=== PATIENT | female | born 1990 | race Two or more races ===

== ENCOUNTER 2017-09-06 09:37 | Inpatient (IN) | payer OTHER ==
[2017-09-06] VITALS (7 sets, daily range): BP systolic 120–129; BP diastolic 58–79
[~2017-09-06] VITALS: Ht 162.6 cm; Wt 74.5 kg
[2017-09-06 10:59] LABS: BASOPHIL (%) 0.3 % (0-1); EOSINOPHIL (%) 1.1 % (0-5); EOSINOPHIL COUNT 0.1 K/uL (0-0.3); HEMATOCRIT 28.4 % (36.0-46.0); HEMOGLOBIN 8.7 G/DL (11.9-15.5); IMMATURE GRANULOCYTE (%) 0.4 % (0.0-0.7); LYMPHOCYTE (%) 20.2 % (15-42); MCH 22.3 PG (29.0-34.0); MCHC 30.6 G/DL (30.0-36.0); MCV 72.8 FL (83-99); MONOCYTE (%) 12.6 % (3-12); MONOCYTE COUNT 1.3 K/uL (0-0.8); NEUTROPHIL (%) 65.4 % (45-76); NEUTROPHIL COUNT 6.5 K/uL (1.8-6.4); PLATELET COUNT 286 K/uL (156-360); RBC DIS.WIDTH-CV 17.9 % (11.8-14.6); RBC DIS.WIDTH-SD 46.5 % (39-53)
[2017-09-06 12:13] LABS: AMPHETAMINE NEGATIVE (500 ng/mL); BARBITURATES NEGATIVE (200 ng/mL); BENZODIAZEPINES NEGATIVE (150 ng/mL); BUPRENORPHINE NEGATIVE (10 ng/mL); COCAINE NEGATIVE (150 ng/mL); METHADONE NEGATIVE (200 ng/mL); METHAMPHETAMINE NEGATIVE (500 ng/mL); OPIATES (MORPHINE) NEGATIVE (100 ng/mL); OXYCODONE NEGATIVE (100 ng/mL); PHENCYCLIDINE NEGATIVE (25 ng/mL); PROPOXYPHENE NEGATIVE (300 ng/mL); THC CANNABINOIDS NEGATIVE (50 ng/mL); TRICYCLIC ANTIDEPRESSANTS NEGATIVE (300 ng/mL)
[2017-09-06] MEDS ORDERED: MTERYTI COMBO1 EACH PO (18:07)
[2017-09-07] VITALS (8 sets, daily range): BP systolic 111–132; BP diastolic 60–72
[2017-09-07 07:13] LABS: BASOPHIL (%) 0.2 % (0-1); EOSINOPHIL COUNT 0.1 K/uL (0-0.3); HEMATOCRIT 25.1 % (36.0-46.0); HEMOGLOBIN 7.6 G/DL (11.9-15.5); IMMATURE GRANULOCYTE (%) 0.4 % (0.0-0.7); LYMPHOCYTE (%) 18.8 % (15-42); MCH 22.4 PG (29.0-34.0); MCHC 30.3 G/DL (30.0-36.0); MCV 73.8 FL (83-99); MONOCYTE COUNT 1.3 K/uL (0-0.8); NEUTROPHIL (%) 67.6 % (45-76); NEUTROPHIL COUNT 7.3 K/uL (1.8-6.4); PLATELET COUNT 221 K/uL (156-360); RBC DIS.WIDTH-CV 17.9 % (11.8-14.6); RBC DIS.WIDTH-SD 47.8 % (39-53); WHITE BLOOD COUNT 10.8 K/uL (4.1-10.2)
[2017-09-07 16:37] LABS: HEMATOCRIT 24.8 % (36.0-46.0); HEMOGLOBIN 7.4 G/DL (11.9-15.5); MCH 21.9 PG (29.0-34.0); MCHC 29.8 G/DL (30.0-36.0); MCV 73.4 FL (83-99); PLATELET COUNT 235 K/uL (156-360); RBC DIS.WIDTH-SD 47.2 % (39-53); RED BLOOD COUNT 3.38 M/uL (3.80-5.20); WHITE BLOOD COUNT 10.9 K/uL (4.1-10.2)
[2017-09-08 04:14] VITALS: BP 108/57
[2017-09-08] MEDS ORDERED: DOCUSATE SODIU100 MG PO (11:51)
[2017-09-08] MEDS ORDERED: FEOSOL325 MG PO (11:51)
[2017-09-08] MEDS ORDERED: ENDOCET 5-3251 EACH PO (11:51)
[2017-09-08] MEDS ORDERED: IBUPROFEN800 MG PO (11:51)
== END 2017-09-08 16:32 | disposition home or self-care (01) | DRG 765 ==
LOC: LDRP-OP → 2WEST 09:38 → LDRP-OP 10-22 12:12
PROVIDERS: Obstetrics & Gynecology; Obstetrics & Gynecology Obstetrics
PROC: 10D00Z1 Extraction of Products of Conception, Low, Open Approach (ICD-10-PCS; principal; 2017-09-06)
DX: O34.211 Maternal care for low transverse scar from previous cesarean delivery (principal); O75.82 Onset (spontaneous) of labor after 37 completed weeks of gestation but before 39 completed weeks gestation, with delivery by (planned) cesarean section; O99.02 Anemia complicating childbirth; D62 Acute posthemorrhagic anemia; D50.9 Iron deficiency anemia, unspecified; O69.1XX0 Labor and delivery complicated by cord around neck, with compression, not applicable or unspecified; O99.824 Streptococcus B carrier state complicating childbirth; O98.42 Viral hepatitis complicating childbirth; B18.1 Chronic viral hepatitis B without delta-agent; O42.02 Full-term premature rupture of membranes, onset of labor within 24 hours of rupture; Z3A.38 38 weeks gestation of pregnancy; Z37.0 Single live birth
CPT/HCPCS: 85025; 85027; 86850; 86900; 86901; J0330; J0690; J1200; J1885; J2250; J2274; J2405; J2540; J3010; J7120; S0020